=== PATIENT | male | born 1995 | race Caucasian/White ===

== ENCOUNTER 2018-04-08 20:20 | Emergency (ER) | payer SELFPAY ==
[2018-04-08] MEDS ORDERED: KETOROLAC 30 MG/ML INJ ONE (22:23)
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
[2018-04-08 23:45] VITALS: BP 123/83; TEMP 98.6; O2SAT 99
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
== END 2018-04-08 23:39 | disposition home or self-care (01) ==
LOC: ER 20:20
DX: M54.5 Low back pain (principal); M54.2 Cervicalgia; V43.52XA Car driver injured in collision with other type car in traffic accident, initial encounter; Y93.89 Activity, other specified; Y92.89 Other specified places as the place of occurrence of the external cause; Y99.8 Other external cause status
CPT/HCPCS: 72040; 72100; 96372; 99283

== ENCOUNTER → 2023-11-22 | Emergency (ER) | payer OTHER ==
[~2023-11-22] MED LIST: KETOROLAC 30 MG/ML INJ ONE
--- OUTSIDE RECORDS SUMMARY | 2023-11-22 16:24 | XMS REPORT | Continuity of Care Document ---
Author Name Unknown Address [address] [place] [address] [facility] thconnect Address [address] [facility] [facility] [place] [address] Care Team Providers Care Peanut Sheller Name Role Phone Santos Riggins Primary Care Physician Only, Ang Db Test Attending Clinician UnavailJalen Valencia Attending Clinician [phone] JALEN CRAWFORD Attending Clinician Unavailable Payers Payer Name Policy Type Policy Number Effective Date Expirati on Date Source Allergies, Adverse Reactions, Alerts Allergy Name Allergy Type Status Severity Reaction(s) Onset Date Inactive Date Treating Clinician Comments Source NO KNOWN ALLERGIE S Drug Class Active [facility] Social History Social Habit Start Date Stop Date Quantity Comments Source Exposure to SARS-CoV-2 (event) Not sure [facility] Sex Assigned At 1995 00:00:00 1995 00:[birth year]:00 [facility] Smoking Status Start Date Stop Date Source Unknown if ever smoked Un[facility] Encounters Start Date/Time End Date/Time Encounter Type Admission Type Attending Clinicians Care Facility Care Department Encounter ID Source 2021-07-31 20:20:05 2021-07-31 20:35:05 Laboratory Only Only, Ang Db Test Jalen Crawford [facility] Chris?[facility] [id number] [facility] 2021-07-31 20:30:00 2021-07-31 20:30:00 Outpatient JALEN TORRE [facility] [id number] [facility]
--- NOTE | 2023-11-22 18:59 | RAD REPORT ---
EXAM DESCRIPTION: Eber Single View11/22/2023 6:27 pm CLINICAL HISTORY: Chest pain COMPARISON: 2016 FINDINGS: The lungs appear clear of acute infiltrate. The heart is normal size IMPRESSION: No acute abnormalities displayed
[2023-11-22 19:15] LABS: Hematocrit 39.8 % (39.6-49.0); Lymphocytes % 29.6 % (15.3-44.8); MCV 80.9 fL (80-100); Platelets 289 thou/uL (152-406); RBC Red Blood Cell Count 4.92 M/uL (4.33-5.43)
[2023-11-22 19:43] LABS: Potassium 3.7 mEq/L (3.5-5.1); Troponin High Sensitivity 7.5 pg/mL (<58.9)
--- NOTE | 2023-11-22 19:51 | EDPHYS ---
Physician Documentation [facility] Name: Rubén Ferguson Jr Age: 28 yrs Sex: Male : 1995 Arrival Date: 11/22/2023 Time: 16:21 Bed 18 Private MD: ED Physician Johan Castillo HPI: 11/22 16:53 This 28 yrs old Male presents to ER via Ambulatory with complaints of Chest ec2 Pain, Shortness Of Breath. 16:53 Patient arrives today for evaluation of chest pain. Reports has been experiencing chest ec2 pain since last night. Reports that the pain is worse with pressing on the area. Patient reports no fevers or chills, no nausea or vomiting. Patient reports that he has no specific trauma to the area. Patient reports no exertional component.. Historical: - Allergies: 16:29 No Known Allergies; nj1 - PMHx: 16:29 Depression; Heart Murmur; nj1 - PSHx: 16:29 None; nj1 - Immunization history:: Client reports having NOT received the Covid vaccine. - Social history:: Smoking status: Patient denies any tobacco usage or history of. ROS: 16:53 Constitutional: as per hpi ec2 Exam: 16:53 Constitutional: GEN: NAD Head: atraumatic Eyes: EOMI Ears: External ears are ec2 normal. CV: regular rate LUNGS: no respiratory distress, no wheezes, no rales, rhonchi ABD: non-distended SKIN: no evidence of rashes MSK: no evidence of trauma, reproducible chest wall TTP NEURO: moves all extremities equally Vital Signs: 16:27 BP 144 / 91; Pulse 71; Resp 18; Temp 98.5(O); Pulse Ox 100% ; Weight 140.61 kg; Height nj1 5 ft. 8 in. ; Pain 4/10; 20:13 BP 138 / 90; Pulse 69; Resp 17 S; Pulse Ox 100% on R/A; ha1 16:27 Body Mass Index 47.13 (140.61 kg, 172.72 cm) nj1 16:27 Pain Scale: Adult nj1 MDM: 16:45 Patient medically screened. ec2 16:53 Data reviewed: vital signs. ED course: Patient arrives today for chest pain. ec2 Examination remarkable for reproducible chest wall TTP. Will obtain lab work, EKG, chest x-ray and treat the patient pain with Toradol. Currently considering costochondritis, low suspicion for ACS or PE. . 19:46 ED course: Metabolic profile reassuring, BNP within normal ranges, troponin within ec2 normal ranges. On reassessment patient remains well-appearing in no acute distress. Will discharge home. Return precautions given. . 02 16:53 Order name: Basic Metabolic Panel; Complete Time: 19:46 ec2 11/22 16:53 Order name: CBC with Diff; Complete Time: 19:22 ec2 11/22 16:53 Order name: NT PRO-BNP; Complete Time: 19:46 ec2 11/22 16:53 Order name: Troponin HS; Complete Time: 19:46 ec2 11/22 16:53 Order name: XRAY Chest (1 view); Complete Time: 19:22 ec2 11/22 16:53 Order name: EKG; Complete Time: 16:53 ec2 11/22 16:53 Order name: Cardiac monitoring; Complete Time: 19:06 ec2 11/22 16:53 Order name: EKG - Nurse/Tech; Complete Time: 19:06 ec2 11/22 16:53 Order name: IV Saline Lock; Complete Time: 19:06 ec2 11/22 16:53 Order name: Labs collected and sent; Complete Time: 19:06 ec2 11/22 16:53 Order name: O2 Per Protocol; Complete Time: 19:06 ec2 11/22 16:53 Order name: O2 Sat Monitoring; Complete Time: 19:06 ec2 Administered Medications: 18:58 Drug: Ketorolac IVP 15 mg IVP once Route: IVP; Site: right antecubital; db 19:30 Follow up: Response: No adverse reaction; Pain is decreased ha1 Disposition Summary: 11/22/23 19:50 Discharge Ordered Notes: Location: Home ec2 Condition: Stable ec2 Diagnosis - Chest pain, unspecified ec2 Followup: ec2 - With: Private Physician - When: - Reason: Recheck today's complaints Discharge Instructions: - Discharge Summary Sheet ec2 - Nonspecific Chest Pain, Adult ec2 - Costochondritis, [id number] ec2 Forms: - Medication Reconciliation Form ec2 - Thank You Letter ec2 - Antibiotic Education ec2 - Prescription Opioid Use ec2 - Patient Portal Instructions ec2 - Leadership Thank You Letter ec2 Prescriptions: - methocarbamol 500 mg Oral tablet - take 2 tablets ORAL route 4 times per day; 30 tablet; Refills: 0, Product ec2 Selection Permitted Signatures: Dispatcher [employer] Mehnaz Leos RN RN db Cinda Trotter RN RN nj1 Johan Castillo MD MD ec2 Carol Ozuna RN ha1 Corrections: (The following items were deleted from the chart) 18:16 18:16 Patient medically screened. ec2 ec2
--- NOTE | 2023-11-22 19:51 | ER ---
Nurse's Notes [facility] Name: Rubén Ferguson Jr Age: 28 yrs Sex: Male : 1995 Arrival Date: 11/22/2023 Time: 16:21 Bed 18 Private MD: Diagnosis: Chest pain, unspecified Presentation: 11/22 16:27 Chief complaint: Patient states: Chest pain since yesterday, worse when breathing in. [facility] Coronavirus screen: Vaccine status: Patient reports being unvaccinated. Ebola Screen: Patient denies travel to an Ebola-affected area in the 21 days before illness onset. Initial Sepsis Screen: Does the patient meet any 2 criteria? No. Patient's initial sepsis screen is negative. Does the patient have a suspected source of infection? No. Patient's initial sepsis screen is negative. Risk Assessment: Do you want to hurt yourself or someone else? Patient reports no desire to harm self or others. Onset of symptoms was November 21, 2023. 16:27 Method Of Arrival: Ambulatory [facility] 16:27 Acuity: JOSE [facility] Historical: - Allergies: 16:29 No Known Allergies; nj1 - PMHx: 16:29 Depression; Heart Murmur; nj1 - PSHx: 16:29 None; ok1 - Immunization history:: Client reports having NOT received the Covid vaccine. - Social history:: Smoking status: Patient denies any tobacco usage or history of. Screenin:55 [facility] ED Fall Risk Assessment (Adult) History of falling in the last 3 months, db including since admission No falls in past 3 months (0 pts) Confusion or Disorientation No (0 pts) Intoxicated or Sedated No (0 pts) Impaired Gait No (0 pts) Mobility Assist Device Used No (0 pt) Altered Elimination No (0 pt) Score/Fall Risk Level 0 - 2 = Low Risk Oriented to surroundings, Maintained a safe environment. Abuse screen: Denies threats or abuse. Denies injuries from another. Nutritional screening: No deficits noted. Tuberculosis screening: No symptoms or risk factors identified. Assessment: 18:55 Reassessment: Patient appears in no apparent distress at this time. Patient and/or db family updated on plan of care and expected duration. Pain level reassessed. Patient is alert, oriented x 3, equal unlabored respirations, skin warm/dry/pink. General: Appears in no apparent distress. comfortable, Behavior is calm, cooperative. Pain: Complains of pain in chest Pain does not radiate. Pain began 1 day ago. Cardiovascular: Reports chest pain, Capillary refill < 3 seconds Patient's skin is warm and dry. 19:15 General: Appears comfortable, Behavior is calm, cooperative. Pain: Complains of pain in ha1 chest Pain does not radiate. Pain currently is 5 out of 10 on a pain scale. Quality of pain is described as throbbing, Pain began 2-3 days ago. Is intermittent. Neuro: Level of Consciousness is awake, alert, obeys commands, Oriented to person, place, time, situation. Cardiovascular: Heart tones S1 S2 present Capillary refill < 3 seconds Patient's skin is warm and dry. Pulses are all present. Respiratory: Airway is patent Respiratory effort is even, unlabored, Respiratory pattern is regular, symmetrical. GI: No signs and/or symptoms were reported involving the gastrointestinal system. 20:13 Reassessment: Patient and/or family updated on plan of care and expected duration. Pain ha1 level reassessed. Patient is alert, oriented x 3, equal unlabored respirations, skin warm/dry/pink. Vital Signs: 16:27 BP 144 / 91; Pulse 71; Resp 18; Temp 98.5(O); Pulse Ox 100% ; Weight 140.61 kg; Height nj1 5 ft. 8 in. ; Pain 4/10; 20:13 BP 138 / 90; Pulse 69; Resp 17 S; Pulse Ox 100% on R/A; ha1 16:27 Body Mass Index 47.13 (140.61 kg, 172.72 cm) nj1 16:27 Pain Scale: Adult [facility] ED Course: 16:24 Patient arrived in ED. im 16:27 Johan Castillo MD is Attending Physician. ec2 16:28 Triage completed. nj1 16:29 Arm band placed on right wrist. nj1 18:29 XRAY Chest (1 view) In Process Unspecified. EDMS 18:55 Patient has correct armband on for positive identification. Bed in low position. Call db light in reach. Side rails up X 1. Client placed on continuous cardiac and pulse oximetry monitoring. NIBP monitoring applied. 18:55 No provider procedures requiring assistance completed. db 18:58 Inserted saline lock: 20 gauge in right antecubital area, using aseptic technique. db Blood collected. 19:00 Patient maintains SpO2 saturation greater than 95% on room air. ha1 20:13 Provided Education on: FOLLOWING UP WITH SENIOR [employer]SEK[employer]PER . ha1 20:13 IV discontinued, intact, bleeding controlled, No redness/swelling at site. Pressure ha1 dressing applied. Administered Medications: 18:58 Drug: Ketorolac IVP 15 mg IVP once Route: IVP; Site: right antecubital; db 19:30 Follow up: Response: No adverse reaction; Pain is decreased ha1 Medication: 18:55 VIS not applicable for this client. db Outcome: 19:50 Discharge ordered by . ec2 20:11 Discharged to home ambulatory, with family, ha1 20:11 Condition: stable 20:11 Discharge instructions given to patient, family, Instructed on discharge instructions, follow up and referral plans. Demonstrated understanding of instructions, follow-up care, 20:13 Patient left the ED. 1 Signatures: Dispatcher [employer] Carol Stevens RN RN ha1 Mehnaz Giles RN RN db Jaco, Norma, RN RN nj1 Sindhu Mena Edwin, MD MD ec2
[2023-11-22 20:23] VITALS: TEMP 98.5; O2SAT 100
[2023-11-22 20:45] VITALS: BP 138/90
== END ==
LOC: ER 16:21
DX: R07.9 Chest pain, unspecified (principal); Z28.310 Unvaccinated for COVID-19
CPT/HCPCS: 36415; 71045; 80048; 83880; 84484; 85025; 93005; 96374; 99285